=== PATIENT | female | born 1995 | race Caucasian/White ===

== ENCOUNTER 2018-06-02 23:01 | Emergency (ER) | payer MEDICAID, OTHER ==
[~2018-06-02] VITALS: Ht 172.7 cm; Wt 137.9 kg
[2018-06-02 23:09] VITALS: Ht 172.7 cm; Wt 137.9 kg
[2018-06-03] MEDS ORDERED: NITR-58 PO (02:09)
[2018-06-03] MEDS ORDERED: ACET500C5 PO (02:09)
--- NOTE | 2018-06-03 02:14 | ERD ---
ER Documentation Chief Complaint Chief Complaint abdominal pain x 3 days HPI Patient is a 22-year-old female presents the ER for concerns of having a UTI x 2-3 days as well as bilateral rib pain for months. Patient states she had UTIs in the past and feels as if she is getting a UTI. Patient reports burning pain with urination. Patient denies any fevers or chills. Patient denies any nausea or vomiting. Patient also reports bilateral rib pain for the last few months.. Patient states "I had a minor injury" while playing basketball. Patient denies any chest pain or shortness of breath. Patient is ambulating without any difficulty. ROS All systems reviewed and are negative except as per history of present illness. Medications Home Meds Active Scripts Acetaminophen* (Tylophen*) 500 Mg Capsule, 1 CAP PO Q6H PRN for PAIN AND OR ELEVATED TEMP, #20 CAP Prov:SATINDER CASE PA-C 06/03/18 Nitrofurantoin Monohyd Macrocr* (Macrobid*) 100 Mg Capsr, 100 MG PO BID for 5 Days, CAP Prov:SATINDER CASE PA-C 06/03/18 Allergies Allergies: Coded Allergies: No Known Allergy (Verified Allergy, Unknown, 11/03/07) PMhx/Soc Medical and Surgical Hx: pt denies Medical Hx, pt denies Surgical Hx Hx Alcohol Use: No Hx Substance Use: No Hx Tobacco Use: No Smoking Status: Never smoker FmHx Family History: No diabetes Physical Exam Vitals Vital Signs Date Temp Pulse Resp B/P (MAP) Pulse Ox O2 O2 Flow FiO2 Time Delivery Rate 06/02/18 98.3 89 18 162/73 100 23:09 (102) Physical Exam GENERAL: Well-developed, well-nourished female. Appears in no acute distress. Speaking full sentences. HEAD: Normocephalic, atraumatic. EYES: Pupils are equally reactive bilaterally. EOMs grossly intact. No conjunctival erythema. ENT: Moist mucous membranes. No uvula deviation. No kissing tonsils. NECK: Supple. No meningismus. Normal range of motion of the neck. LUNG: Clear to auscultation bilaterally. No rhonchi, wheezing, rales or coarse breath sounds. HEART: Regular rate and rhythm. No murmurs, rubs or gallops. CHEST WALL: No ecchymosis, crepitus or step-offs noted. No evidence of trauma. ABDOMEN: Soft, nontender, and nondistended. Positive bowel sounds in all four quadrants. No rebound tenderness, no guarding. (-) McBurney's point tenderness. No CVA tenderness. EXTREMITIES: Equal pulses bilaterally. No peripheral clubbing, cyanosis or edema. No unilateral leg swelling. NEUROLOGIC: Alert and oriented. Moving all four extremities without any difficulty. Normal speech. Steady gait. SKIN: Normal color. Warm and dry. No rashes or lesions. Results 24 hrs Laboratory Tests Test 06/03/18 00:23 06/03/18 00:27 Bedside Urine pH (LAB) 6.5 Bedside Urine Protein (LAB) Negative Bedside Urine Glucose (UA) Negative Bedside Urine Ketones (LAB) Negative Bedside Urine Blood Trace-intact Bedside Urine Nitrite (LAB) Negative Bedside Urine Leukocyte Esterase (L Trace POC Beta HCG, Qualitative NEGATIVE Procedures/MDM ED COURSE: The patient was stable throughout ED course. I kept the patient and/or family informed of laboratory and diagnostic imaging results throughout the ED course. DIAGNOSTIC IMAGING: Read by radiologist. Patient: KATHRYN MAYES : 1995 Age: 22 Sex: F MR #: [id number] DOS: 06/03/18 0009 Ordering MD: SATINDER CASE PA-C Location: [facility] Room/Bed: PROCEDURE: Chest x-ray CLINICAL INDICATION: Bilateral rib pain. TECHNIQUE: VIEWS: 1 COMPARISON: CR CHEST 09/17/2008 FINDINGS: SUPPORT DEVICES: None CARDIAC AND MEDIASTINAL SILHOUETTES: Normal in size . LUNGS AND PLEURAL SPACE: Appear clear . PNEUMOTHORAX: None. OSSEOUS STRUCTURES: Unremarkable. IMPRESSION: 1. No acute pulmonary disease. RPTAT: HRSR Physician Abdon Date Time Electronically viewed and signed by Physician Abdon on 06/03/2018 02:21 RR/ CC: SATINDER CASE PA-C [id number] MEDICAL DECISION MAKING: This is a 22-year-old female concerns of bilateral rib pain and urinary symptoms.. Patient states she is out of her pain for the last few months. Patient states urinary symptoms started 2-3 days ago. Vital signs were reviewed. Patient was afebrile. Patient was not hypoxic. Abdominal exam is completely benign. Patient had no rebound or guarding. Patient no peritoneal signs. No evidence to suggest acute abdomen at this time. Chest x-ray was unremarkable. UA did show trace leukocyte esterase. Given that patient does report dysuria, patient will be treated with course of Macrobid. At this time, patient presentation is most consistent with bilateral rib pain and UTI. Differential diagnosis included was not limited to rib fracture, pneumothorax, acute coronary syndrome, AAA, mesenteric ischemia, lower lobe pneumonia, DKA, bowel perforation, cholecystitis, choledocholithiasis, ascending cholangitis, hepatic abscess, pancreatitis, PUD, gastritis, GERD, splenic rupture, diverticulitis, UTI, pyelonephritis, nephrolithiasis, appendicitis, constipation, , ectopic , PID, ovarian torsion or tubo-ovarian abscess. Patient was nontoxic, [id number] prior to discharge. PRESCRIPTIONS: Tylenol, Macrobid DISCHARGE: At this time, patient is stable for discharge and outpatient management. I have instructed the patient to follow-up with his/her primary care physician in 1-2 days. I have instructed the patient to promptly return to the ER at any time for any new or worsening symptoms including increased pain, nausea, vomiting, diarrhea, fever, weakness or LOC. The patient and/or family expressed understanding of and agreement with this plan. All questions were answered. Home care instructions were provided. Disclaimer: Inadvertent spelling and grammatical errors are likely due to EHR/dictation software use and do not reflect on the overall quality of patient care. Also, please note that the electronic time recorded on this note does not necessarily reflect the actual time of the patient encounter. Departure Diagnosis: Primary Impression: UTI (urinary tract infection) Urinary tract infection type: site unspecified Hematuria presence: without hematuria Qualified Codes: N39.0 - Urinary tract infection, site not specified Additional Impressions: Rib pain on left side Rib pain on right side Condition: Fair Patient Instructions: Understanding Urinary Tract Infections (UTIs), Rib Contusion Referrals: [facility] YOU HAVE RECEIVED A MEDICAL SCREENING EXAM AND THE RESULTS INDICATE THAT YOU DO NOT HAVE A CONDITION THAT REQUIRES URGENT TREATMENT IN THE EMERGENCY DEPARTMENT. FURTHER EVALUATION AND TREATMENT OF YOUR CONDITION CAN WAIT UNTIL YOU ARE SEEN IN YOUR DOCTORS OFFICE WITHIN THE NEXT 1-2 DAYS. IT IS YOUR RESPONSIBILITY TO MAKE AN APPOINTMENT FOR FOLOW-UP CARE. IF YOU HAVE A PRIMARY DOCTOR --you should call your primary doctor and schedule an appointment IF YOU DO NOT HAVE A PRIMARY DOCTOR YOU CAN CALL OUR PHYSICIAN REFERRAL HOTLINE AT IF YOU CAN NOT AFFORD TO SEE A PHYSICIAN YOU CAN CHOSE FROM THE FOLLOWING [facility] [address] [facility] [address] [facility] [address] [facility] [address] [facility] [address] [facility]. [facility] [address] [facility] YOU HAVE RECEIVED A MEDICAL SCREENING EXAM AND THE RESULTS INDICATE THAT YOU DO NOT HAVE A CONDITION THAT REQUIRES URGENT TREATMENT IN THE EMERGENCY DEPARTMENT. FURTHER EVALUATION AND TREATMENT OF YOUR CONDITION CAN WAIT UNTIL YOU ARE SEEN IN YOUR DOCTORS OFFICE WITHIN THE NEXT 1-2 DAYS. IT IS YOUR RESPONSIBILITY TO MAKE AN APPOINTMENT FOR FOLOW-UP CARE. IF YOU HAVE A PRIMARY DOCTOR --you should call your primary doctor and schedule and appointment IF YOU DO NOT HAVE A PRIMARY DOCTOR YOU CAN CALL OUR PHYSICIAN REFERRAL HOTLINE AT . IF YOU CAN NOT AFFORD TO SEE A PHYSICIAN YOU CAN CHOSE FROM THE FOLLOWING [facility]: [facility] [address] [place] [address] [facility] [address] [place] [address] [facility] [address] [place] [address] Additional Instructions: Call your primary care doctor TOMORROW for an appointment during the next 1-2 days.See the doctor sooner or return here if your condition worsens before your appointment time. SATINDER CASE PA-C Jun 03, 2018 02:14
[2018-06-03 02:57] VITALS: BP 156/76; PULSE 81; RESP 18
== END 2018-06-03 02:58 | disposition home or self-care (01) ==
LOC: FTE 23:01
DX: N39.0 Urinary tract infection, site not specified (principal); R07.81 Pleurodynia
CPT/HCPCS: 71045; 81003; 81025; Z7502